=== PATIENT | female | born 1940 | race African-American/Black ===

== ENCOUNTER 2018-06-13 18:47 | Emergency (ER) | payer BC ==
[~2018-06-13] VITALS: Ht 157.5 cm; Wt 96.0 kg
[2018-06-13] MEDS ORDERED: KETOROLAC 60MG/2ML VIAL IM ONE (22:30)
[2018-06-13] MEDS ORDERED: HYDROCODONE/ACETAMINOPHEN 5/325MG TABLET PO ONE (22:30)
[2018-06-13 22:50] LABS: CLARITY URINE TURBID (CLEAR); COLOR URINE YELLOW (YELLOW); KETONES URINE NEGATIVE (NEGATIVE); LEUKOCYTE ESTERASE URINE NEGATIVE (NEGATIVE); NITRITE URINE NEGATIVE (NEGATIVE); OCCULT BLOOD URINE TRACE (NEGATIVE); PROTEIN URINE TRACE (NEGATIVE); SPECIFIC GRAVITY URINE 1.006 (1.005-1.030); UROBILINOGEN URINE 0.2 E.U./dL (0.2-1.0)
[2018-06-14 00:31] VITALS: BP 156/72
== END 2018-06-13 23:12 | disposition home or self-care (01) ==
LOC: ER 18:47
DX: M54.9 Dorsalgia, unspecified (principal); M54.30 Sciatica, unspecified side; M71.20 Synovial cyst of popliteal space [Baker], unspecified knee; E11.9 Type 2 diabetes mellitus without complications; I10 Essential (primary) hypertension; Z98.890 Other specified postprocedural states
CPT/HCPCS: 72100; 81003; 93971; 96372; 99285; J1885

== ENCOUNTER 2018-06-19 16:37 | Inpatient (IN) | payer BC, MEDICAID ==
[~2018-06-19] VITALS: Ht 157.5 cm; Wt 95.7 kg
[2018-06-19] MEDS ORDERED: ONDANSETRON HCL 4MG/2ML INJ IV STA (18:24)
[2018-06-19] MEDS ORDERED: SODIUM CHLORIDE 0.9% 1,000 ML IV ONE (18:24)
[2018-06-19] MEDS ORDERED: MORPHINE SULFATE 4 MG/ML CPJ (NOT FOR IM USE) IV STA (18:24)
[2018-06-19 18:38] LABS: BASOPHILS % 0.2 % (0.0-2.0); EOSINOPHILS % 0.2 % (0.0-5.0); HEMATOCRIT. 26.1 % (36.0-48.0); HEMOGLOBIN. 8.9 g/dL (12.0-16.0); LYMPHOCYTES % 20.8 % (20.0-50.0); MEAN CORPUSCULAR HEMOGLOBIN 34.3 pg (28.0-32.0); MEAN CORPUSCULAR VOLUME 100.3 fL (81.0-99.0); MEAN PLATELET VOLUME 8.5 fl (7.4-10.4); MONOCYTES % 10.7 % (2.0-8.0); NEUTROPHILS % 68.1 % (40.0-76.0); PLATELET 164 x1000/uL (130-400)
[2018-06-19 19:20] LABS: CHLORIDE 92 mEq/L (98-107)
[2018-06-19 19:23] LABS: INR 1.1; PARTIAL THROMBOPLASTIN TIME 25.4 sec (23.4-31.0)
[2018-06-19] MEDS ORDERED: SODIUM CHLORIDE 0.9% 1000ML BAG (SEPSIS BOLUS) IV ONE (20:00)
[2018-06-19 21:32] LABS: CLARITY URINE CLOUDY (CLEAR); COLOR URINE YELLOW (YELLOW); KETONES URINE NEGATIVE (NEGATIVE); LEUKOCYTE ESTERASE URINE TRACE (NEGATIVE); NITRITE URINE NEGATIVE (NEGATIVE); OCCULT BLOOD URINE 1+ (NEGATIVE); PROTEIN URINE 1+ (NEGATIVE); SPECIFIC GRAVITY URINE 1.009 (1.005-1.030); UROBILINOGEN URINE 0.2 E.U./dL (0.2-1.0)
[2018-06-19] MEDS ORDERED: ONDANSETRON HCL 4MG/2ML INJ IV PRN (23:15)
[2018-06-19] MEDS ORDERED: CEFTRIAXONE 1 G PREMIX 50 ML IV SCH (23:30)
[2018-06-20] VITALS (7 sets, daily range): BP systolic 118–167; BP diastolic 49–74
[2018-06-20] LABS: PHOSPHORUS 5.9 mg/dL (2.5-4.9)
[2018-06-20] MEDS: SODIUM CHLORIDE 0.9% 1,000 ML IV SCH ×3 (03:41→21:09)
[2018-06-20] MEDS ORDERED: LEVOFLOXACIN 500MG PREMIX 100 ML IV NR (04:00)
[2018-06-20 05:14] LABS: BASOPHILS % 0.2 % (0.0-2.0); EOSINOPHILS % 0.5 % (0.0-5.0); HEMATOCRIT. 21.6 % (36.0-48.0); HEMOGLOBIN. 7.5 g/dL (12.0-16.0); LYMPHOCYTES % 19.4 % (20.0-50.0); MEAN CORPUSCULAR HEMOGLOBIN 34.9 pg (28.0-32.0); MEAN CORPUSCULAR VOLUME 100.1 fL (81.0-99.0); MEAN PLATELET VOLUME 7.5 fl (7.4-10.4); MONOCYTES % 12.8 % (2.0-8.0); NEUTROPHILS % 67.1 % (40.0-76.0); PLATELET 132 x1000/uL (130-400); RED BLOOD CELL COUNT 2.16 mill/uL (4.2-5.4)
[2018-06-20] MEDS: CEFTRIAXONE 1 G PREMIX 50 ML IV SCH (05:27)
[2018-06-20] MEDS ORDERED: PNEUMOCOCCAL 23-VAL P-SAC VAC 0.5 ML IM ONE (08:00)
[2018-06-20] MEDS ORDERED: ENOXAPARIN 40MG/0.4ML SYR SUBCUT SCH (09:00)
[2018-06-20 09:28] LABS: TOTAL IRON BINDING CAPACITY 137 ug/dL (250-450)
[2018-06-20] MEDS ORDERED: INFLUENZA VIRUS VACCINE(AFLURIA) 0.5ML SYR IM ONE (10:00)
[2018-06-20] MEDS: POTASSIUM CHLORIDE 20MEQ TABLET SR PO SCH (10:58)
[2018-06-20] MEDS: METOPROLOL TARTRATE 25MG TABLET PO SCH ×3 (10:58→21:10)
[2018-06-20] MEDS: ONDANSETRON HCL 4MG/2ML INJ IV PRN ×2 (10:59→17:44)
[2018-06-20] MEDS: DEXTROSE 50% WATER 50ML SYRINGE IV PRN (11:10)
[2018-06-20] MEDS: MORPHINE SULFATE 4 MG/ML CPJ (NOT FOR IM USE) IV PRN (11:11)
[2018-06-20] MEDS: BLOOD SUGAR DIAGNOSTIC STRIP TEST SCH ×3 (12:40→21:10)
[2018-06-20] MEDS: INSULIN LISPRO 100 UNITS/ML SUBCUT SCH ×3 (13:10→21:11)
[2018-06-20 15:27] LABS: *AMPHETAMINES SCREEN URINE NEGATIVE (NEGATIVE); *BARBITURATES SCREEN URINE NEGATIVE (NEGATIVE); *BENZODIAZEPINES SCREEN URINE NEGATIVE (NEGATIVE); *COCAINE SCREEN URINE NEGATIVE (NEGATIVE); CANNABINOID URINE SCREEN NEGATIVE (NEGATIVE); METHADONE URINE SCREEN NEGATIVE (NEGATIVE); OPIATES URINE SCREEN PRESUMTIVE POSITIVE (NEGATIVE); PHENCYCLIDINE URINE SCREEN NEGATIVE (NEGATIVE)
[2018-06-20] MEDS ORDERED: LOVA20TA2 MT (16:16)
[2018-06-20] MEDS ORDERED: MAGN250T29 MT (16:16)
[2018-06-20] MEDS ORDERED: GLIP10TA10 MT (16:16)
[2018-06-20] MEDS ORDERED: FERR325T6 MT (16:16)
[2018-06-20] MEDS ORDERED: ATEN-42 MT (16:16)
[2018-06-20] MEDS ORDERED: LEVO150T8 MT (16:16)
[2018-06-20] MEDS ORDERED: AMLO10TA80 MT (16:16)
[2018-06-21] VITALS: BP 144/55
[2018-06-21 04:00] VITALS: BP 141/59
[2018-06-21] MEDS: CEFTRIAXONE 1 G PREMIX 50 ML IV SCH (04:16)
[2018-06-21] MEDS: MORPHINE SULFATE 4 MG/ML CPJ (NOT FOR IM USE) IV PRN ×3 (05:40→21:56)
[2018-06-21] MEDS: BLOOD SUGAR DIAGNOSTIC STRIP TEST SCH ×5 (07:40→21:30)
[2018-06-21] MEDS: INSULIN LISPRO 100 UNITS/ML SUBCUT SCH ×4 (07:57→21:00)
[2018-06-21 08:00] VITALS: BP 145/60
[2018-06-21] MEDS: METOPROLOL TARTRATE 25MG TABLET PO SCH ×2 (08:37→21:55)
[2018-06-21] MEDS: SODIUM CHLORIDE 0.9% 1,000 ML IV SCH ×2 (08:37→17:00)
[2018-06-21] MEDS: POTASSIUM CHLORIDE 20MEQ TABLET SR PO SCH (08:37)
[2018-06-21] MEDS: LEVOTHYROXINE SODIUM 150MCG TABLET PO SCH (09:49)
[2018-06-21] MEDS: GLIPIZIDE 10MG TABLET PO SCH ×2 (09:50→17:00)
[2018-06-21] MEDS: AMLODIPINE 10MG TABLET PO SCH (09:50)
[2018-06-21] MEDS: ONDANSETRON HCL 4MG/2ML INJ IV PRN (09:54)
[2018-06-21 10:14] LABS: BASOPHILS % 0.3 % (0.0-2.0); EOSINOPHILS % 2.4 % (0.0-5.0); HEMATOCRIT. 21.9 % (36.0-48.0); HEMOGLOBIN. 7.5 g/dL (12.0-16.0); LYMPHOCYTES % 21.7 % (20.0-50.0); MEAN CORPUSCULAR HEMOGLOBIN 34.3 pg (28.0-32.0); MEAN PLATELET VOLUME 7.9 fl (7.4-10.4); MONOCYTES % 12.6 % (2.0-8.0); PLATELET 130 x1000/uL (130-400); RED BLOOD CELL COUNT 2.19 mill/uL (4.2-5.4)
[2018-06-21 12:00] VITALS: BP 138/74
[2018-06-21 16:00] VITALS: BP 124/56
[2018-06-21] MEDS ORDERED: PAMIDRONATE DISODIUM 60 MG in SODIUM CHLORIDE 0.9% 500 ML IV NR (17:00)
[2018-06-21] MEDS: DEXTROSE 50% WATER 50ML SYRINGE IV PRN ×2 (17:18→21:22)
[2018-06-21 20:00] VITALS: BP 148/59
[2018-06-22] VITALS: BP 117/61
[2018-06-22] MEDS: SODIUM CHLORIDE 0.9% 1,000 ML IV SCH ×2 (03:39→13:00)
[2018-06-22 04:00] VITALS: BP 126/62
[2018-06-22] MEDS: CEFTRIAXONE 1 G PREMIX 50 ML IV SCH (04:50)
[2018-06-22] MEDS ORDERED: LEVOFLOXACIN 250MG PREMIX 50 ML IV SCH (06:00)
[2018-06-22] MEDS: BLOOD SUGAR DIAGNOSTIC STRIP TEST SCH ×3 (06:30→21:24)
[2018-06-22] MEDS: DEXTROSE 50% WATER 50ML SYRINGE IV PRN (06:42)
[2018-06-22 07:02] LABS: BASOPHILS % 0.1 % (0.0-2.0); EOSINOPHILS % 2.1 % (0.0-5.0); HEMOGLOBIN. 7.8 g/dL (12.0-16.0); LYMPHOCYTES % 26.1 % (20.0-50.0); MEAN CORPUSCULAR VOLUME 100.1 fL (81.0-99.0); MEAN PLATELET VOLUME 7.7 fl (7.4-10.4); MONOCYTES % 11.8 % (2.0-8.0); NEUTROPHILS % 59.9 % (40.0-76.0); PLATELET 124 x1000/uL (130-400); RED BLOOD CELL COUNT 2.29 mill/uL (4.2-5.4); RED CELL DISTRIBUTION WIDTH 14.2 % (11.6-14.6)
[2018-06-22 08:00] VITALS: BP 134/57
[2018-06-22] MEDS: INSULIN LISPRO 100 UNITS/ML SUBCUT SCH ×5 (08:10→21:30)
[2018-06-22] MEDS: METOPROLOL TARTRATE 25MG TABLET PO SCH ×2 (09:00→20:04)
[2018-06-22] MEDS: GLIPIZIDE 10MG TABLET PO SCH ×2 (09:00→17:00)
[2018-06-22] MEDS: LEVOTHYROXINE SODIUM 150MCG TABLET PO SCH (09:50)
[2018-06-22] MEDS: AMLODIPINE 10MG TABLET PO SCH (09:51)
[2018-06-22] MEDS: POTASSIUM CHLORIDE 20MEQ TABLET SR PO SCH (09:51)
[2018-06-22 12:00] VITALS: BP 134/63
[2018-06-22 16:00] VITALS: BP 131/75
[2018-06-22] MEDS: MORPHINE SULFATE 4 MG/ML CPJ (NOT FOR IM USE) IV PRN (19:55)
[2018-06-22 20:00] VITALS: BP 142/56
[2018-06-23] VITALS (8 sets, daily range): BP systolic 113–129; BP diastolic 45–61
[2018-06-23] MEDS: SODIUM CHLORIDE 0.9% 1,000 ML IV SCH ×2 (01:44→09:52)
[2018-06-23] MEDS: CEFTRIAXONE 1 G PREMIX 50 ML IV SCH (04:21)
[2018-06-23] MEDS: BLOOD SUGAR DIAGNOSTIC STRIP TEST SCH ×4 (06:16→21:00)
[2018-06-23 06:35] LABS: BASOPHILS % 0.3 % (0.0-2.0); EOSINOPHILS % 3.4 % (0.0-5.0); HEMOGLOBIN. 7.2 g/dL (12.0-16.0); LYMPHOCYTES % 18.8 % (20.0-50.0); MEAN CORPUSCULAR HEMOGLOBIN 35.3 pg (28.0-32.0); MEAN CORPUSCULAR VOLUME 100.1 fL (81.0-99.0); MEAN PLATELET VOLUME 7.6 fl (7.4-10.4); MONOCYTES % 10.7 % (2.0-8.0); NEUTROPHILS % 66.8 % (40.0-76.0); PLATELET 124 x1000/uL (130-400); RED BLOOD CELL COUNT 2.06 mill/uL (4.2-5.4); RED CELL DISTRIBUTION WIDTH 13.7 % (11.6-14.6)
[2018-06-23 06:58] LABS: HEMATOCRIT. 20.6 % (36.0-48.0)
[2018-06-23] MEDS: LEVOTHYROXINE SODIUM 150MCG TABLET PO SCH (07:40)
[2018-06-23 07:42] LABS: PHOSPHORUS 3.1 mg/dL (2.5-4.9)
[2018-06-23] MEDS: GLIPIZIDE 10MG TABLET PO SCH ×2 (09:53→17:00)
[2018-06-23] MEDS: POTASSIUM CHLORIDE 20MEQ TABLET SR PO SCH (09:53)
[2018-06-23] MEDS: AMLODIPINE 10MG TABLET PO SCH (09:54)
[2018-06-23] MEDS: METOPROLOL TARTRATE 25MG TABLET PO SCH ×2 (09:54→21:00)
[2018-06-23] MEDS: MORPHINE SULFATE 4 MG/ML CPJ (NOT FOR IM USE) IV PRN ×2 (10:53→16:13)
[2018-06-23 13:06] LABS: A/G RATIO 0.5 (0.7-1.7); ALPHA-1-GLOBULIN 0.2 g/dL (0.0-0.4); ALPHA-2-GLOBULIN 0.6 g/dL (0.4-1.0); BETA GLOBULIN 0.8 g/dL (0.7-1.3); GAMMA GLOBULINS 4.7 g/dL (0.4-1.8); GLOBULIN TOTAL 6.3 g/dL (2.2-3.9); M-SPIKE 4.4 g/dL (Not Observed); TOTAL PROTEIN SERUM 9.3 g/dL (6.0-8.5)
[2018-06-23] MEDS: INSULIN LISPRO 100 UNITS/ML SUBCUT SCH ×3 (13:10→21:00)
[2018-06-23 14:18] LABS: KAPPA LT CHAINS FREE SERUM 452.9 mg/L (3.3-19.4); KAPPA/LAMBDA RATIO 73.05 (0.26-1.65); LAMBDA LT CHAINS FREE SERUM 6.2 mg/L (5.7-26.3)
[2018-06-24] VITALS (15 sets, daily range): BP systolic 119–141; BP diastolic 45–73
[2018-06-24] MEDS: BLOOD SUGAR DIAGNOSTIC STRIP TEST SCH ×4 (05:33→21:00)
[2018-06-24] MEDS: INSULIN LISPRO 100 UNITS/ML SUBCUT SCH ×4 (08:10→21:00)
[2018-06-24 09:06] LABS: VITAMIN D 1-25 DIHYDROXY 13.1 pg/mL (19.9-79.3)
[2018-06-24] MEDS: METOPROLOL TARTRATE 25MG TABLET PO SCH ×2 (09:36→21:00)
[2018-06-24] MEDS: GLIPIZIDE 10MG TABLET PO SCH ×2 (09:37→22:15)
[2018-06-24] MEDS: LEVOTHYROXINE SODIUM 150MCG TABLET PO SCH (09:37)
[2018-06-24] MEDS: MORPHINE SULFATE 4 MG/ML CPJ (NOT FOR IM USE) IV PRN ×2 (09:37→13:49)
[2018-06-24 10:47] LABS: BASOPHILS % 0.2 % (0.0-2.0); EOSINOPHILS % 2.6 % (0.0-5.0); HEMATOCRIT. 28.3 % (36.0-48.0); HEMOGLOBIN. 9.7 g/dL (12.0-16.0); LYMPHOCYTES % 20.8 % (20.0-50.0); MEAN CORPUSCULAR HEMOGLOBIN 32.7 pg (28.0-32.0); MEAN PLATELET VOLUME 7.5 fl (7.4-10.4); NEUTROPHILS % 65.4 % (40.0-76.0); PLATELET 121 x1000/uL (130-400); RED BLOOD CELL COUNT 2.98 mill/uL (4.2-5.4); RED CELL DISTRIBUTION WIDTH 17.4 % (11.6-14.6)
[2018-06-24 11:00] LABS: PHOSPHORUS 2.2 mg/dL (2.5-4.9)
[2018-06-24] MEDS: ONDANSETRON HCL 4MG/2ML INJ IV PRN (13:54)
[2018-06-25 00:35] VITALS: BP 138/57
[2018-06-25 04:00] VITALS: BP 142/50
[2018-06-25] MEDS: MORPHINE SULFATE 4 MG/ML CPJ (NOT FOR IM USE) IV PRN ×2 (04:08→09:03)
[2018-06-25] MEDS: BLOOD SUGAR DIAGNOSTIC STRIP TEST SCH ×4 (06:06→20:34)
[2018-06-25 08:00] VITALS: BP 132/63
[2018-06-25] MEDS: INSULIN LISPRO 100 UNITS/ML SUBCUT SCH ×4 (08:10→20:37)
[2018-06-25] MEDS: METOPROLOL TARTRATE 25MG TABLET PO SCH ×2 (08:54→20:33)
[2018-06-25] MEDS: LEVOTHYROXINE SODIUM 150MCG TABLET PO SCH (08:54)
[2018-06-25] MEDS: GLIPIZIDE 10MG TABLET PO SCH ×2 (08:54→17:34)
[2018-06-25] MEDS ORDERED: LACTULOSE 20G/30ML UDC PO SCH (09:00)
[2018-06-25] MEDS: ONDANSETRON HCL 4MG/2ML INJ IV PRN (10:18)
[2018-06-25 12:00] VITALS: BP 127/55
[2018-06-25 13:43] LABS: CHLORIDE 102 mEq/L (98-107)
[2018-06-25 16:00] VITALS: BP 165/77
[2018-06-25] MEDS: LACTULOSE 20G/30ML UDC PO SCH ×3 (17:00→20:33)
[2018-06-25] MEDS: DOCUSATE SODIUM 100MG CAPSULE PO SCH ×2 (17:00→17:34)
[2018-06-25] MEDS: BISACODYL 10MG SUPP PR SCH (17:34)
[2018-06-25] MEDS: ACETAMINOPHEN 325MG TABLET PO PRN ×2 (17:35→23:36)
[2018-06-25 20:00] VITALS: BP 141/58
[2018-06-25] MEDS: POLYETHYLENE GLYCOL 3350 (17GM) 1 DOSE PACK PO SCH (20:33)
[2018-06-25 20:53] LABS: T4 FREE 1.27 ng/dL (0.76-1.46)
[2018-06-25 21:07] LABS: FOLIC ACID (FOLATE) SERUM 4.7 ng/mL (>5.38)
[2018-06-26 00:11] VITALS: BP 142/67
[2018-06-26 04:00] VITALS: BP 115/62
[2018-06-26] MEDS: ACETAMINOPHEN 325MG TABLET PO PRN ×3 (05:30→18:58)
[2018-06-26] MEDS: BLOOD SUGAR DIAGNOSTIC STRIP TEST SCH ×4 (07:40→22:00)
[2018-06-26] MEDS: INSULIN LISPRO 100 UNITS/ML SUBCUT SCH ×4 (08:10→21:00)
[2018-06-26] MEDS: DOCUSATE SODIUM 100MG CAPSULE PO SCH ×2 (08:48→18:58)
[2018-06-26] MEDS: GLIPIZIDE 10MG TABLET PO SCH ×2 (08:48→18:58)
[2018-06-26] MEDS: METOPROLOL TARTRATE 25MG TABLET PO SCH ×2 (08:48→21:00)
[2018-06-26] MEDS: LEVOTHYROXINE SODIUM 150MCG TABLET PO SCH (08:49)
[2018-06-26] MEDS: BISACODYL 10MG SUPP PR SCH (09:00)
[2018-06-26 12:00] VITALS: BP 121/61
[2018-06-26 13:07] LABS: CHLORIDE 103 mEq/L (98-107)
[2018-06-26 16:00] VITALS: BP 131/61
[2018-06-26 20:00] VITALS: BP 108/63
[2018-06-26] MEDS ORDERED: MORPHINE SULFATE 2 MG/ML CPJ (NOT FOR IM USE) IV PRN (21:15)
[2018-06-26] MEDS ORDERED: HYDROCODONE/ACETAMINOPHEN 5/325MG TABLET PO PRN ×2 (21:15→21:30)
[2018-06-26] MEDS: POLYETHYLENE GLYCOL 3350 (17GM) 1 DOSE PACK PO SCH (22:00)
[2018-06-26] MEDS: MORPHINE SULFATE 4 MG/ML CPJ (NOT FOR IM USE) IV PRN (22:06)
[2018-06-27] VITALS: BP 117/62
[2018-06-27 04:00] VITALS: BP 128/62
[2018-06-27] MEDS: BLOOD SUGAR DIAGNOSTIC STRIP TEST SCH ×4 (06:54→21:00)
[2018-06-27] MEDS: INSULIN LISPRO 100 UNITS/ML SUBCUT SCH ×4 (06:54→21:00)
[2018-06-27 08:00] VITALS: BP 121/59
[2018-06-27] MEDS: LEVOTHYROXINE SODIUM 150MCG TABLET PO SCH (08:21)
[2018-06-27] MEDS: DOCUSATE SODIUM 100MG CAPSULE PO SCH ×2 (08:57→18:36)
[2018-06-27] MEDS: METOPROLOL TARTRATE 25MG TABLET PO SCH ×2 (08:57→21:02)
[2018-06-27] MEDS: GLIPIZIDE 10MG TABLET PO SCH ×2 (09:00→17:00)
[2018-06-27] MEDS: BISACODYL 10MG SUPP PR SCH (09:00)
[2018-06-27] MEDS: MORPHINE SULFATE 4 MG/ML CPJ (NOT FOR IM USE) IV PRN (10:37)
[2018-06-27 12:00] VITALS: BP 123/52
[2018-06-27 16:00] VITALS: BP 122/50
[2018-06-27 20:00] VITALS: BP 151/72
[2018-06-27] MEDS: POLYETHYLENE GLYCOL 3350 (17GM) 1 DOSE PACK PO SCH (21:01)
[2018-06-28] MEDS ORDERED: CYANOCOBALAMIN 1000MCG TABLET PO SCH (08:10)
== END 2018-06-27 22:10 | DRG 840 ==
LOC: ER 16:37 → 7WST 21:32 → ENRESERV 22:09
PROVIDERS: ADMIT Internal Medicine Nephrology; ATTEND Internal Medicine Nephrology
PROC: 30233N1 Transfusion of Nonautologous Red Blood Cells into Peripheral Vein, Percutaneous Approach (ICD-10-PCS; principal; 2018-06-23)
DX: C90.00 Multiple myeloma not having achieved remission (principal); G82.50 Quadriplegia, unspecified; E43 Unspecified severe protein-calorie malnutrition; G93.6 Cerebral edema; N17.9 Acute kidney failure, unspecified; N18.4 Chronic kidney disease, stage 4 (severe); N39.0 Urinary tract infection, site not specified; D64.9 Anemia, unspecified; I48.0 Paroxysmal atrial fibrillation; E83.52 Hypercalcemia; M45.0 Ankylosing spondylitis of multiple sites in spine; D63.8 Anemia in other chronic diseases classified elsewhere; D69.6 Thrombocytopenia, unspecified; E03.9 Hypothyroidism, unspecified; E11.22 Type 2 diabetes mellitus with diabetic chronic kidney disease; E11.51 Type 2 diabetes mellitus with diabetic peripheral angiopathy without gangrene; E78.00 Pure hypercholesterolemia, unspecified; E78.5 Hyperlipidemia, unspecified; E87.6 Hypokalemia; I12.9 Hypertensive chronic kidney disease with stage 1 through stage 4 chronic kidney disease, or unspecified chronic kidney disease; M41.9 Scoliosis, unspecified; M47.812 Spondylosis without myelopathy or radiculopathy, cervical region; M47.816 Spondylosis without myelopathy or radiculopathy, lumbar region; M48.02 Spinal stenosis, cervical region; M48.04 Spinal stenosis, thoracic region; M48.061 Spinal stenosis, lumbar region without neurogenic claudication; M71.21 Synovial cyst of popliteal space [Baker], right knee; K44.9 Diaphragmatic hernia without obstruction or gangrene; Z68.38 Body mass index [BMI] 38.0-38.9, adult; Z83.3 Family history of diabetes mellitus; Z87.891 Personal history of nicotine dependence; Z79.899 Other long term (current) drug therapy
CPT/HCPCS: 36415; 70551; 71045; 71250; 72141; 72146; 72148; 74018; 74176; 76770; 77075; 80048; 80305; 82550; 82607; 82652; 82728; 82746; 82784; 82962; 83036; 83540; 83550; 83735; 83883; 83970; 84100; 84155; 84165; 84439; 84443; 84481; 86334; 86850; 86900; 86920; 90686; 90732; 93005; 93306; 93970; 96361; 96374; 96375; 97116; 97162; 97166; 97530; 97535; 99285; J0696; J1650; J1815; J1956; J2270; J2405; J2430; J7030; J7040; J7050; P9016

== ENCOUNTER 2018-07-20 12:33 | Inpatient (IN) | payer MEDICARE, MEDICAID ==
[~2018-07-20] VITALS: Ht 157.5 cm; Wt 87.3 kg
[~2018-07-20 12:33] MED LIST: AMLO10TA80 MT; ATEN-42 MT; FERR325T6 MT; LEVO150T8 MT; LOVA20TA2 MT; MAGN250T29 MT
[2018-07-20 13:02] LABS: HEMATOCRIT. 24.6 % (36.0-48.0); HEMOGLOBIN. 8.5 g/dL (12.0-16.0); MEAN CORPUSCULAR HEMOGLOBIN 32.9 pg (28.0-32.0); MEAN CORPUSCULAR VOLUME 95.4 fL (81.0-99.0); MEAN PLATELET VOLUME 7.1 fl (7.4-10.4); PLATELET 167 x1000/uL (130-400); RED BLOOD CELL COUNT 2.58 mill/uL (4.2-5.4); RED CELL DISTRIBUTION WIDTH 17.9 % (11.6-14.6)
[2018-07-20 13:07] LABS: CHLORIDE 93 mEq/L (98-107)
[2018-07-20 13:11] LABS: ETHANOL BLOOD < 10 mg/dL; INR 1.3; PROTHROMBIN TIME 13.3 sec (9.1-11.1)
[2018-07-20 13:14] LABS: LDL CHOLESTEROL 13 mg/dL (5-100)
[2018-07-20 13:36] LABS: PLATELET ESTIMATE NORMAL
[2018-07-20 14:23] LABS: PHOSPHORUS 5.9 mg/dL (2.5-4.9)
[2018-07-20] MEDS ORDERED: SODIUM CHLORIDE 0.9% 1,000 ML IV ONE (14:52)
[2018-07-20 14:56] LABS: CLARITY URINE CLOUDY (CLEAR); COLOR URINE YELLOW (YELLOW); KETONES URINE NEGATIVE (NEGATIVE); LEUKOCYTE ESTERASE URINE NEGATIVE (NEGATIVE); NITRITE URINE NEGATIVE (NEGATIVE); OCCULT BLOOD URINE TRACE (NEGATIVE); PROTEIN URINE 1+ (NEGATIVE); SPECIFIC GRAVITY URINE 1.014 (1.005-1.030); UROBILINOGEN URINE 0.2 E.U./dL (0.2-1.0)
[2018-07-20 15:33] LABS: *AMPHETAMINES SCREEN URINE NEGATIVE (NEGATIVE); METHADONE URINE SCREEN NEGATIVE (NEGATIVE); OPIATES URINE SCREEN PRESUMTIVE POSITIVE (NEGATIVE); PHENCYCLIDINE URINE SCREEN NEGATIVE (NEGATIVE)
[2018-07-20 15:34] LABS: *BARBITURATES SCREEN URINE NEGATIVE (NEGATIVE); *BENZODIAZEPINES SCREEN URINE NEGATIVE (NEGATIVE); *COCAINE SCREEN URINE NEGATIVE (NEGATIVE); CANNABINOID URINE SCREEN NEGATIVE (NEGATIVE)
[2018-07-20 17:48] VITALS: BP 163/98
[2018-07-20 18:00] VITALS: BP 124/85
[2018-07-20] MEDS: ENOXAPARIN 30MG/0.3ML SYR SUBCUT SCH (18:42)
[2018-07-20] MEDS ORDERED: SODIUM CHLORIDE 0.9% 1,000 ML IV SCH ×2 (19:00→20:44)
[2018-07-20] MEDS ORDERED: SODIUM CHLORIDE 0.9% 100 ML IV ONE (19:00)
[2018-07-20] MEDS: CLONIDINE 0.1MG TABLET PO PRN (19:09)
[2018-07-20] MEDS ORDERED: BACLOFEN PO (19:45)
[2018-07-20] MEDS ORDERED: GLIP5TAB12 MT (19:59)
[2018-07-20] MEDS ORDERED: CYAN10009 MT (19:59)
[2018-07-20] MEDS ORDERED: METO25TA6 MT (19:59)
[2018-07-20] MEDS ORDERED: HYDR-4001 MT (19:59)
[2018-07-20] MEDS ORDERED: DOCU-150 MT (19:59)
[2018-07-20] MEDS ORDERED: INSLIS SUBCUT (19:59)
[2018-07-20] MEDS ORDERED: BISA10SU62 RC (19:59)
[2018-07-20 20:00] VITALS: BP 138/79
[2018-07-20] MEDS ORDERED: ACET-2178 MT (20:31)
[2018-07-20] MEDS ORDERED: LORAZEPAM 2MG/ML CPJ IV PRN (20:45)
[2018-07-20] MEDS ORDERED: ENOXAPARIN 40MG/0.4ML SYR SUBCUT SCH (20:45)
[2018-07-20] MEDS ORDERED: ACETAMINOPHEN 650MG/20.3ML UDC GT PRN (20:45)
[2018-07-20] MEDS ORDERED: DILTIAZEM HCL 5MG/ML 25ML VIAL IV NR (20:58)
[2018-07-20] MEDS ORDERED: METOPROLOL TARTRATE 5MG/5ML VIAL IV NR (21:00)
[2018-07-20] MEDS: METOPROLOL TARTRATE 25MG TABLET PO SCH (21:00)
[2018-07-20 22:00] VITALS: BP 95/58
[2018-07-20] MEDS: ATORVASTATIN CALCIUM 10MG TABLET PO SCH (22:04)
[2018-07-20] MEDS: SODIUM CHLORIDE 0.9% 1,000 ML IV SCH (22:11)
[2018-07-20 23:18] LABS: CREATINE KINASE MB FRACTION 1.3 ng/mL (0.5-3.6)
[2018-07-20] MEDS: CEFTRIAXONE 1 G PREMIX 50 ML IV SCH (23:39)
[2018-07-21] VITALS (15 sets, daily range): BP systolic 123–165; BP diastolic 62–95
[2018-07-21] MEDS ORDERED: DEXTROSE 50% WATER 50ML SYRINGE IV PRN (00:15)
[2018-07-21 06:43] LABS: CREATINE KINASE MB FRACTION 1.1 ng/mL (0.5-3.6)
[2018-07-21] MEDS: INSULIN LISPRO 100 UNITS/ML SUBCUT SCH ×4 (08:00→21:00)
[2018-07-21] MEDS: SODIUM CHLORIDE 0.9% 1,000 ML IV SCH ×2 (08:14→18:31)
[2018-07-21] MEDS: METOPROLOL TARTRATE 25MG TABLET PO SCH ×2 (08:15→21:33)
[2018-07-21] MEDS: BACLOFEN 10MG TABLET PO SCH (08:15)
[2018-07-21] MEDS: GLIPIZIDE 5MG TABLET PO SCH ×2 (08:15→17:30)
[2018-07-21] MEDS: LEVOTHYROXINE SODIUM 150MCG TABLET PO SCH (08:15)
[2018-07-21] MEDS: CYANOCOBALAMIN 1000MCG TABLET PO SCH (08:16)
[2018-07-21] MEDS: FERROUS SULFATE 325MG TABLET PO SCH ×4 (08:16→21:32)
[2018-07-21] MEDS: BLOOD SUGAR DIAGNOSTIC STRIP TEST SCH ×4 (08:16→21:33)
[2018-07-21] MEDS ORDERED: MEDICATION NOT ON FORMULARY EA (Lovastatin 1 TAB) MT SCH (09:00)
[2018-07-21] MEDS ORDERED: PAMIDRONATE DISODIUM 60 MG in SODIUM CHLORIDE 0.9% 500 ML IV SCH (17:00)
[2018-07-21] MEDS: ENOXAPARIN 30MG/0.3ML SYR SUBCUT SCH (18:01)
[2018-07-21] MEDS: ATORVASTATIN CALCIUM 10MG TABLET PO SCH (21:32)
[2018-07-21] MEDS: HYDROCODONE/ACETAMINOPHEN 5/325MG TABLET PO PRN (21:32)
[2018-07-21] MEDS: CEFTRIAXONE 1 G PREMIX 50 ML IV SCH (23:20)
[2018-07-22] VITALS (13 sets, daily range): BP systolic 96–174; BP diastolic 34–96
[2018-07-22] MEDS: CLONIDINE 0.1MG TABLET PO PRN ×2 (02:23→06:36)
[2018-07-22] MEDS: SODIUM CHLORIDE 0.9% 1,000 ML IV SCH ×2 (03:02→08:55)
[2018-07-22 06:44] LABS: HEMATOCRIT. 23.9 % (36.0-48.0); HEMOGLOBIN. 8.2 g/dL (12.0-16.0); MEAN CORPUSCULAR HEMOGLOBIN 32.9 pg (28.0-32.0); MEAN CORPUSCULAR VOLUME 96.4 fL (81.0-99.0); PLATELET 131 x1000/uL (130-400); RED BLOOD CELL COUNT 2.48 mill/uL (4.2-5.4); RED CELL DISTRIBUTION WIDTH 17.4 % (11.6-14.6)
[2018-07-22 07:08] LABS: PHOSPHORUS 3.5 mg/dL (2.5-4.9)
[2018-07-22] MEDS: GLIPIZIDE 5MG TABLET PO SCH (07:30)
[2018-07-22] MEDS: BLOOD SUGAR DIAGNOSTIC STRIP TEST SCH ×4 (07:53→21:00)
[2018-07-22] MEDS: INSULIN LISPRO 100 UNITS/ML SUBCUT SCH ×4 (07:53→22:26)
[2018-07-22] MEDS: CYANOCOBALAMIN 1000MCG TABLET PO SCH (08:25)
[2018-07-22] MEDS: LEVOTHYROXINE SODIUM 150MCG TABLET PO SCH (08:25)
[2018-07-22] MEDS: FERROUS SULFATE 325MG TABLET PO SCH ×5 (08:26→22:20)
[2018-07-22] MEDS: BACLOFEN 10MG TABLET PO SCH (08:26)
[2018-07-22] MEDS: METOPROLOL TARTRATE 25MG TABLET PO SCH ×2 (08:26→21:00)
[2018-07-22 17:12] LABS: T4 FREE 1.76 ng/dL (0.76-1.46)
[2018-07-22 17:44] LABS: FOLIC ACID (FOLATE) SERUM 3.2 ng/mL (>5.38)
[2018-07-22 17:45] LABS: PLATELET ESTIMATE NORMAL
[2018-07-22] MEDS ORDERED: DEXT 5%/0.45% NACL 1000ML 1,000 ML IV SCH (18:15)
[2018-07-22] MEDS: ATORVASTATIN CALCIUM 10MG TABLET PO SCH (22:21)
[2018-07-22] MEDS: DEXT 5%/0.9% NACL 1,000 ML IV SCH (22:22)
[2018-07-22] MEDS: CEFTRIAXONE 1 G PREMIX 50 ML IV SCH (23:31)
[2018-07-23] VITALS (20 sets, daily range): BP systolic 110–169; BP diastolic 46–94
[2018-07-23] MEDS: DEXT 5%/0.9% NACL 1,000 ML IV SCH ×3 (05:25→17:23)
[2018-07-23 06:59] LABS: MEAN CORPUSCULAR HEMOGLOBIN 32.6 pg (28.0-32.0); MEAN CORPUSCULAR VOLUME 96.2 fL (81.0-99.0); PLATELET 125 x1000/uL (130-400); RED BLOOD CELL COUNT 2.01 mill/uL (4.2-5.4); RED CELL DISTRIBUTION WIDTH 17.8 % (11.6-14.6)
[2018-07-23 07:22] LABS: HEMATOCRIT. 19.4 % (36.0-48.0); HEMOGLOBIN. 6.6 g/dL (12.0-16.0)
[2018-07-23] MEDS: BLOOD SUGAR DIAGNOSTIC STRIP TEST SCH ×4 (07:30→21:47)
[2018-07-23] MEDS ORDERED: PROPOFOL 200MG/20ML VIAL IV ONE (07:40)
[2018-07-23] MEDS ORDERED: MIDAZOLAM HCL 2 MG/2 ML VIAL ONE (07:40)
[2018-07-23] MEDS ORDERED: LIDOCAINE HCL/PF 1% 10 MG/ML 5ML VIAL ONE (07:41)
[2018-07-23] MEDS ORDERED: LIDOCAINE HCL 1% 20ML VIAL (Pyxis) INJ ONE (07:42)
[2018-07-23] MEDS: CYANOCOBALAMIN 1000MCG TABLET PO SCH (09:42)
[2018-07-23] MEDS: BACLOFEN 10MG TABLET PO SCH (09:42)
[2018-07-23] MEDS: METOPROLOL TARTRATE 25MG TABLET PO SCH ×2 (09:45→21:46)
[2018-07-23] MEDS ORDERED: AMIODARONE HCL 900 MG in DEXT 5% WATER 482 ML IV SCH (10:15)
[2018-07-23] MEDS ORDERED: AMIODARONE HCL 150 MG in DEXT 5% WATER 100 ML IV SCH (10:15)
[2018-07-23] MEDS: FERROUS SULFATE 325MG TABLET PO SCH ×4 (10:15→21:45)
[2018-07-23] MEDS: LEVOTHYROXINE SODIUM 150MCG TABLET PO SCH (10:19)
[2018-07-23] MEDS: INSULIN LISPRO 100 UNITS/ML SUBCUT SCH ×5 (10:43→21:47)
[2018-07-23] MEDS: ACETAMINOPHEN 325MG TABLET PO PRN (10:47)
[2018-07-23 12:56] LABS: ATYPICAL LYMPHOCYTES 1; NUCLEATED RED BLOOD CELLS 1 /100 WBC
[2018-07-23 12:58] LABS: PLATELET ESTIMATE SLIGHTLY DECREASED
[2018-07-23] MEDS: ATORVASTATIN CALCIUM 10MG TABLET PO SCH (21:45)
[2018-07-23] MEDS: ONDANSETRON HCL 4MG/2ML INJ IV PRN (23:17)
[2018-07-23] MEDS: CEFTRIAXONE 1 G PREMIX 50 ML IV SCH (23:36)
[2018-07-24] VITALS (15 sets, daily range): BP systolic 131–190; BP diastolic 64–98
[2018-07-24 02:14] LABS: HEMOGLOBIN 8.3 g/dL (12.0-16.0)
[2018-07-24 02:17] LABS: INR 1.3; PROTHROMBIN TIME 13.1 sec (9.1-11.1)
[2018-07-24] MEDS: DEXT 5%/0.9% NACL 1,000 ML IV SCH ×4 (02:34→20:33)
[2018-07-24] MEDS: HYDROCODONE/ACETAMINOPHEN 5/325MG TABLET PO PRN ×2 (05:54→13:57)
[2018-07-24 07:13] LABS: HEMATOCRIT. 23.4 % (36.0-48.0); HEMOGLOBIN. 8.1 g/dL (12.0-16.0); MEAN CORPUSCULAR HEMOGLOBIN 32.4 pg (28.0-32.0); MEAN PLATELET VOLUME 7.3 fl (7.4-10.4); PLATELET 106 x1000/uL (130-400); RED BLOOD CELL COUNT 2.51 mill/uL (4.2-5.4); RED CELL DISTRIBUTION WIDTH 16.9 % (11.6-14.6)
[2018-07-24] MEDS: BLOOD SUGAR DIAGNOSTIC STRIP TEST SCH ×4 (08:40→20:41)
[2018-07-24] MEDS: LEVOTHYROXINE SODIUM 150MCG TABLET PO SCH (08:49)
[2018-07-24] MEDS: METOPROLOL TARTRATE 25MG TABLET PO SCH ×3 (08:49→20:34)
[2018-07-24] MEDS: CYANOCOBALAMIN 1000MCG TABLET PO SCH (08:49)
[2018-07-24] MEDS: FERROUS SULFATE 325MG TABLET PO SCH ×4 (08:49→20:33)
[2018-07-24] MEDS: BACLOFEN 10MG TABLET PO SCH (08:50)
[2018-07-24] MEDS: INSULIN LISPRO 100 UNITS/ML SUBCUT SCH ×4 (08:53→20:41)
[2018-07-24] MEDS: AMIODARONE HCL 200 MG TABLET PO SCH ×2 (11:00→20:33)
[2018-07-24] MEDS ORDERED: ENALAPRIL 2.5MG/2ML VIAL 2ML IV SCH ×2 (13:30→18:00)
[2018-07-24] MEDS: ONDANSETRON HCL 4MG/2ML INJ IV PRN (14:23)
[2018-07-24 15:10] LABS: PLATELET ESTIMATE DECREASED
[2018-07-24] MEDS ORDERED: ENALAPRIL 2.5MG/2ML VIAL 2ML IV PRN (18:00)
[2018-07-24] MEDS: ATORVASTATIN CALCIUM 10MG TABLET PO SCH (20:33)
[2018-07-24] MEDS: CEFTRIAXONE 1 G PREMIX 50 ML IV SCH (22:07)
[2018-07-25] VITALS (17 sets, daily range): BP systolic 128–162; BP diastolic 46–99
[2018-07-25] MEDS: DEXT 5%/0.9% NACL 1,000 ML IV SCH ×2 (06:28→18:20)
[2018-07-25 06:55] LABS: BASOPHILS % 0.1 % (0.0-2.0); EOSINOPHILS % 1.3 % (0.0-5.0); HEMATOCRIT. 23.4 % (36.0-48.0); HEMOGLOBIN. 8.2 g/dL (12.0-16.0); LYMPHOCYTES % 15.6 % (20.0-50.0); MEAN CORPUSCULAR HEMOGLOBIN 32.8 pg (28.0-32.0); MEAN CORPUSCULAR VOLUME 93.2 fL (81.0-99.0); MEAN PLATELET VOLUME 7.2 fl (7.4-10.4); MONOCYTES % 12.3 % (2.0-8.0); NEUTROPHILS % 70.7 % (40.0-76.0); PLATELET 101 x1000/uL (130-400); RED BLOOD CELL COUNT 2.51 mill/uL (4.2-5.4); RED CELL DISTRIBUTION WIDTH 17.1 % (11.6-14.6)
[2018-07-25] MEDS: METOPROLOL TARTRATE 25MG TABLET PO SCH ×2 (08:14→21:49)
[2018-07-25] MEDS: LEVOTHYROXINE SODIUM 150MCG TABLET PO SCH (08:14)
[2018-07-25] MEDS: BACLOFEN 10MG TABLET PO SCH (08:14)
[2018-07-25] MEDS: CYANOCOBALAMIN 1000MCG TABLET PO SCH (08:14)
[2018-07-25] MEDS: FERROUS SULFATE 325MG TABLET PO SCH ×4 (08:15→21:48)
[2018-07-25] MEDS: BLOOD SUGAR DIAGNOSTIC STRIP TEST SCH ×4 (08:15→21:49)
[2018-07-25] MEDS: AMIODARONE HCL 200 MG TABLET PO SCH ×2 (08:35→21:48)
[2018-07-25] MEDS: INSULIN LISPRO 100 UNITS/ML SUBCUT SCH ×4 (08:37→21:00)
[2018-07-25] MEDS: ONDANSETRON HCL 4MG/2ML INJ IV PRN (08:43)
[2018-07-25 13:09] LABS: A/G RATIO 0.4 (0.7-1.7); ALBUMIN 2.8 g/dL (2.9-4.4); ALPHA-1-GLOBULIN 0.2 g/dL (0.0-0.4); ALPHA-2-GLOBULIN 0.5 g/dL (0.4-1.0); BETA GLOBULIN 0.6 g/dL (0.7-1.3); GAMMA GLOBULINS 5.8 g/dL (0.4-1.8); GLOBULIN TOTAL 7.1 g/dL (2.2-3.9); M-SPIKE 5.5 g/dL (Not Observed); TOTAL PROTEIN SERUM 9.9 g/dL (6.0-8.5)
[2018-07-25] MEDS: ATORVASTATIN CALCIUM 10MG TABLET PO SCH (21:49)
[2018-07-25] MEDS: ACETAMINOPHEN 325MG TABLET PO PRN (23:47)
[2018-07-25] MEDS: CEFTRIAXONE 1 G PREMIX 50 ML IV SCH (23:49)
[2018-07-26] VITALS (24 sets, daily range): BP systolic 120–183; BP diastolic 56–94
[2018-07-26] MEDS: ACETAMINOPHEN 325MG TABLET PO PRN ×3 (05:26→20:21)
[2018-07-26] MEDS: BLOOD SUGAR DIAGNOSTIC STRIP TEST SCH ×4 (07:30→21:00)
[2018-07-26] MEDS: INSULIN LISPRO 100 UNITS/ML SUBCUT SCH ×4 (08:00→21:58)
[2018-07-26] MEDS: BACLOFEN 10MG TABLET PO SCH (09:56)
[2018-07-26] MEDS: CYANOCOBALAMIN 1000MCG TABLET PO SCH (09:56)
[2018-07-26] MEDS: DOCUSATE SODIUM 100MG CAPSULE PO PRN ×2 (09:56→18:19)
[2018-07-26] MEDS: LEVOTHYROXINE SODIUM 150MCG TABLET PO SCH (09:57)
[2018-07-26] MEDS: FERROUS SULFATE 325MG TABLET PO SCH ×4 (09:57→23:33)
[2018-07-26] MEDS: DEXT 5%/0.9% NACL 1,000 ML IV SCH ×2 (09:57→21:41)
[2018-07-26] MEDS: METOPROLOL TARTRATE 25MG TABLET PO SCH ×2 (09:57→21:40)
[2018-07-26] MEDS: BISACODYL 10MG SUPP PR PRN (09:59)
[2018-07-26] MEDS: AMIODARONE HCL 200 MG TABLET PO SCH ×2 (10:08→21:40)
[2018-07-26 10:57] LABS: BASOPHILS % 0.2 % (0.0-2.0); EOSINOPHILS % 1.6 % (0.0-5.0); HEMATOCRIT. 22.9 % (36.0-48.0); LYMPHOCYTES % 16.3 % (20.0-50.0); MEAN CORPUSCULAR HEMOGLOBIN 32.5 pg (28.0-32.0); MEAN CORPUSCULAR VOLUME 92.9 fL (81.0-99.0); MEAN PLATELET VOLUME 7.4 fl (7.4-10.4); MONOCYTES % 11.2 % (2.0-8.0); NEUTROPHILS % 70.7 % (40.0-76.0); PLATELET 90 x1000/uL (130-400); RED BLOOD CELL COUNT 2.46 mill/uL (4.2-5.4); RED CELL DISTRIBUTION WIDTH 16.8 % (11.6-14.6)
[2018-07-26] MEDS ORDERED: POTASSIUM CHLORIDE 20MEQ TABLET SR PO SCH (12:30)
[2018-07-26] MEDS ORDERED: NA PHOS,M-B/NA PHOS,DI-BA ENEMA 118ML PR NR (14:00)
[2018-07-26] MEDS: CLONIDINE 0.1MG TABLET PO PRN (14:09)
[2018-07-26] MEDS: ATORVASTATIN CALCIUM 10MG TABLET PO SCH (21:40)
[2018-07-26] MEDS: CEFTRIAXONE 1 G PREMIX 50 ML IV SCH (23:27)
[2018-07-27] VITALS (12 sets, daily range): BP systolic 144–168; BP diastolic 64–105
[2018-07-27] MEDS: CLONIDINE 0.1MG TABLET PO PRN (02:41)
[2018-07-27] MEDS: LEVOTHYROXINE SODIUM 150MCG TABLET PO SCH (06:39)
[2018-07-27 07:36] LABS: BASOPHILS % 0.3 % (0.0-2.0); EOSINOPHILS % 1.5 % (0.0-5.0); LYMPHOCYTES % 17.4 % (20.0-50.0); MEAN CORPUSCULAR HEMOGLOBIN 32.3 pg (28.0-32.0); MEAN PLATELET VOLUME 7.5 fl (7.4-10.4); MONOCYTES % 13.3 % (2.0-8.0); NEUTROPHILS % 67.5 % (40.0-76.0); PLATELET 87 x1000/uL (130-400); RED BLOOD CELL COUNT 2.23 mill/uL (4.2-5.4); RED CELL DISTRIBUTION WIDTH 16.8 % (11.6-14.6)
[2018-07-27] MEDS: BLOOD SUGAR DIAGNOSTIC STRIP TEST SCH ×4 (07:56→21:00)
[2018-07-27] MEDS: INSULIN LISPRO 100 UNITS/ML SUBCUT SCH ×4 (08:00→21:00)
[2018-07-27 08:03] LABS: HEMOGLOBIN. 7.2 g/dL (12.0-16.0)
[2018-07-27] MEDS ORDERED: NA PHOS,M-B/NA PHOS,DI-BA ENEMA 118ML PR PRN (09:00)
[2018-07-27] MEDS: FERROUS SULFATE 325MG TABLET PO SCH ×4 (10:09→21:25)
[2018-07-27] MEDS: BACLOFEN 10MG TABLET PO SCH (10:09)
[2018-07-27] MEDS: METOPROLOL TARTRATE 25MG TABLET PO SCH ×2 (10:09→21:33)
[2018-07-27] MEDS: CYANOCOBALAMIN 1000MCG TABLET PO SCH (10:09)
[2018-07-27] MEDS: AMIODARONE HCL 200 MG TABLET PO SCH ×2 (12:10→21:25)
[2018-07-27 13:07] LABS: HEMOGLOBIN 7.5 g/dL (12.0-16.0)
[2018-07-27] MEDS: ACETAMINOPHEN 325MG TABLET PO PRN ×2 (13:41→21:25)
[2018-07-27] MEDS: DOCUSATE SODIUM 100MG CAPSULE PO PRN (21:25)
[2018-07-27] MEDS: ATORVASTATIN CALCIUM 10MG TABLET PO SCH (21:25)
[2018-07-27] MEDS: CEFTRIAXONE 1 G PREMIX 50 ML IV SCH (22:17)
[2018-07-27] MEDS: ONDANSETRON HCL 4MG/2ML INJ IV PRN (22:18)
[2018-07-28] VITALS (14 sets, daily range): BP systolic 130–173; BP diastolic 62–89
[2018-07-28] MEDS: ACETAMINOPHEN 325MG TABLET PO PRN ×2 (04:22→08:24)
[2018-07-28] MEDS: LEVOTHYROXINE SODIUM 137MCG TABLET PO SCH (07:03)
[2018-07-28 07:19] LABS: BASOPHILS % 0.1 % (0.0-2.0); EOSINOPHILS % 1.8 % (0.0-5.0); HEMATOCRIT. 22.5 % (36.0-48.0); HEMOGLOBIN. 7.8 g/dL (12.0-16.0); LYMPHOCYTES % 15.7 % (20.0-50.0); MEAN CORPUSCULAR HEMOGLOBIN 32.2 pg (28.0-32.0); MEAN CORPUSCULAR VOLUME 93.7 fL (81.0-99.0); MEAN PLATELET VOLUME 7.4 fl (7.4-10.4); MONOCYTES % 14.3 % (2.0-8.0); NEUTROPHILS % 68.1 % (40.0-76.0); PLATELET 86 x1000/uL (130-400); RED CELL DISTRIBUTION WIDTH 16.5 % (11.6-14.6)
[2018-07-28] MEDS: BLOOD SUGAR DIAGNOSTIC STRIP TEST SCH ×4 (07:44→21:57)
[2018-07-28] MEDS: INSULIN LISPRO 100 UNITS/ML SUBCUT SCH ×4 (07:44→21:00)
[2018-07-28] MEDS: FERROUS SULFATE 325MG TABLET PO SCH ×4 (08:23→21:39)
[2018-07-28] MEDS: BACLOFEN 10MG TABLET PO SCH (08:23)
[2018-07-28] MEDS: CYANOCOBALAMIN 1000MCG TABLET PO SCH (08:23)
[2018-07-28] MEDS: AMIODARONE HCL 200 MG TABLET PO SCH ×2 (08:23→21:37)
[2018-07-28] MEDS: METOPROLOL TARTRATE 25MG TABLET PO SCH ×2 (08:24→21:39)
[2018-07-28 13:06] LABS: VITAMIN D 1-25 DIHYDROXY 20.1 pg/mL (19.9-79.3)
[2018-07-28] MEDS: AMLODIPINE 5MG TABLET PO SCH ×2 (13:18→21:40)
[2018-07-28] MEDS: TRAMADOL 50MG TABLET PO PRN (15:57)
[2018-07-28] MEDS: ATORVASTATIN CALCIUM 10MG TABLET PO SCH (21:39)
[2018-07-29] VITALS (12 sets, daily range): BP systolic 130–176; BP diastolic 50–83
[2018-07-29] MEDS: LEVOTHYROXINE SODIUM 137MCG TABLET PO SCH (06:17)
[2018-07-29] MEDS: BLOOD SUGAR DIAGNOSTIC STRIP TEST SCH ×4 (06:26→21:00)
[2018-07-29 07:11] LABS: HEMATOCRIT. 23.2 % (36.0-48.0); HEMOGLOBIN. 8.1 g/dL (12.0-16.0); MEAN CORPUSCULAR HEMOGLOBIN 32.6 pg (28.0-32.0); MEAN CORPUSCULAR VOLUME 93.1 fL (81.0-99.0); MEAN PLATELET VOLUME 7.3 fl (7.4-10.4); PLATELET 107 x1000/uL (130-400); RED BLOOD CELL COUNT 2.49 mill/uL (4.2-5.4); RED CELL DISTRIBUTION WIDTH 16.8 % (11.6-14.6)
[2018-07-29] MEDS: INSULIN LISPRO 100 UNITS/ML SUBCUT SCH ×4 (08:00→21:00)
[2018-07-29] MEDS: BACLOFEN 10MG TABLET PO SCH (09:37)
[2018-07-29] MEDS: AMIODARONE HCL 200 MG TABLET PO SCH ×2 (09:37→21:05)
[2018-07-29] MEDS: FERROUS SULFATE 325MG TABLET PO SCH ×4 (09:38→21:06)
[2018-07-29] MEDS: CYANOCOBALAMIN 1000MCG TABLET PO SCH (09:38)
[2018-07-29] MEDS: METOPROLOL TARTRATE 25MG TABLET PO SCH ×2 (09:38→21:05)
[2018-07-29] MEDS: AMLODIPINE 5MG TABLET PO SCH ×2 (09:38→21:05)
[2018-07-29] MEDS: DOCUSATE SODIUM 250MG CAPSULE PO SCH (09:45)
[2018-07-29] MEDS ORDERED: LACTULOSE 20G/30ML UDC PO PRN (09:45)
[2018-07-29 12:49] LABS: ATYPICAL LYMPHOCYTES 1
[2018-07-29 12:50] LABS: PLATELET ESTIMATE SLIGHTLY DECREASED
[2018-07-29] MEDS: TRAMADOL 50MG TABLET PO PRN (21:05)
[2018-07-29] MEDS: ATORVASTATIN CALCIUM 10MG TABLET PO SCH (21:06)
[2018-07-30] VITALS (10 sets, daily range): BP systolic 132–168; BP diastolic 62–78
[2018-07-30] MEDS: TRAMADOL 50MG TABLET PO PRN (06:23)
[2018-07-30 07:13] LABS: BASOPHILS % 0.3 % (0.0-2.0); EOSINOPHILS % 1.5 % (0.0-5.0); HEMATOCRIT. 24.8 % (36.0-48.0); HEMOGLOBIN. 8.8 g/dL (12.0-16.0); LYMPHOCYTES % 20.3 % (20.0-50.0); MEAN CORPUSCULAR HEMOGLOBIN 32.8 pg (28.0-32.0); MEAN CORPUSCULAR VOLUME 92.4 fL (81.0-99.0); MONOCYTES % 12.1 % (2.0-8.0); NEUTROPHILS % 65.8 % (40.0-76.0); PLATELET 127 x1000/uL (130-400); RED BLOOD CELL COUNT 2.68 mill/uL (4.2-5.4); RED CELL DISTRIBUTION WIDTH 16.6 % (11.6-14.6)
[2018-07-30] MEDS: BLOOD SUGAR DIAGNOSTIC STRIP TEST SCH ×3 (07:30→17:50)
[2018-07-30] MEDS: INSULIN LISPRO 100 UNITS/ML SUBCUT SCH ×3 (08:00→17:50)
[2018-07-30] MEDS: LEVOTHYROXINE SODIUM 137MCG TABLET PO SCH (08:44)
[2018-07-30] MEDS: AMIODARONE HCL 200 MG TABLET PO SCH (08:44)
[2018-07-30] MEDS: FERROUS SULFATE 325MG TABLET PO SCH ×3 (08:44→18:13)
[2018-07-30] MEDS: CYANOCOBALAMIN 1000MCG TABLET PO SCH (08:44)
[2018-07-30] MEDS: AMLODIPINE 5MG TABLET PO SCH (08:44)
[2018-07-30] MEDS: METOPROLOL TARTRATE 25MG TABLET PO SCH (08:45)
[2018-07-30] MEDS: BACLOFEN 10MG TABLET PO SCH (08:46)
[2018-07-30] MEDS: DOCUSATE SODIUM 250MG CAPSULE PO SCH (08:46)
[2018-07-30] MEDS: ACETAMINOPHEN 325MG TABLET PO PRN (11:35)
[2018-07-30] MEDS: BISACODYL 10MG SUPP PR PRN (14:27)
[2018-07-30] MEDS: ONDANSETRON HCL 4MG/2ML INJ IV PRN (18:18)
== END 2018-07-30 20:05 | DRG 840 ==
LOC: ER 12:42 → 5EST 15:21 → EDBEDREQ 15:30 → EDBEDREQTM 15:30 → ENRESERV 15:50 → 6WST 07-30 16:30
PROVIDERS: ADMIT Internal Medicine Nephrology; ATTEND Internal Medicine Nephrology
PROC: 30233N1 Transfusion of Nonautologous Red Blood Cells into Peripheral Vein, Percutaneous Approach (ICD-10-PCS; 2018-07-23)
PROC: 07DQ3ZX Extraction of Sternum Bone Marrow, Percutaneous Approach, Diagnostic (ICD-10-PCS; principal; 2018-07-23 07:30)
DX: C90.00 Multiple myeloma not having achieved remission (principal); G92 Toxic encephalopathy; G82.50 Quadriplegia, unspecified; N17.9 Acute kidney failure, unspecified; E87.1 Hypo-osmolality and hyponatremia; N39.0 Urinary tract infection, site not specified; E46 Unspecified protein-calorie malnutrition; I48.92 Unspecified atrial flutter; C79.52 Secondary malignant neoplasm of bone marrow; R47.01 Aphasia; C79.51 Secondary malignant neoplasm of bone; R53.81 Other malaise; M75.92 Shoulder lesion, unspecified, left shoulder; D69.6 Thrombocytopenia, unspecified; E66.01 Morbid (severe) obesity due to excess calories; E83.52 Hypercalcemia; I13.10 Hypertensive heart and chronic kidney disease without heart failure, with stage 1 through stage 4 chronic kidney disease, or unspecified chronic kidney disease; N18.9 Chronic kidney disease, unspecified; M48.061 Spinal stenosis, lumbar region without neurogenic claudication; D63.8 Anemia in other chronic diseases classified elsewhere; E03.9 Hypothyroidism, unspecified; E11.22 Type 2 diabetes mellitus with diabetic chronic kidney disease; E78.5 Hyperlipidemia, unspecified; E78.00 Pure hypercholesterolemia, unspecified; E87.6 Hypokalemia; E87.8 Other disorders of electrolyte and fluid balance, not elsewhere classified; I48.0 Paroxysmal atrial fibrillation; M85.80 Other specified disorders of bone density and structure, unspecified site; R13.10 Dysphagia, unspecified; Z79.01 Long term (current) use of anticoagulants; Z79.4 Long term (current) use of insulin; Z79.890 Hormone replacement therapy; Z86.73 Personal history of transient ischemic attack (TIA), and cerebral infarction without residual deficits; Z79.899 Other long term (current) drug therapy; Z74.01 Bed confinement status; Z68.35 Body mass index [BMI] 35.0-35.9, adult
CPT/HCPCS: 36415; 38220; 70551; 71045; 80048; 80305; 82140; 82164; 82330; 82533; 82550; 82553; 82607; 82652; 82746; 82962; 83036; 83721; 83735; 83970; 84100; 84155; 84165; 84439; 84442; 84443; 84481; 84484; 85014; 85018; 85049; 85060; 85097; 85384; 86850; 86900; 86920; 88313; 92610; 93005; 93970; 97110; 97163; 97167; 97530; 99285; A6261; G0482; J0282; J0696; J1650; J1815; J2060; J2250; J2405; J2430; J2704; J3490; J7030; J7040; J7042; J7050; J7060; P9016